=== PATIENT | female | born 1975 | race Caucasian/White ===

== ENCOUNTER → 2017-08-02 | Outpatient (CLI) | payer BC | LOC: FIMAGING 08:03 | PROVIDERS: ATTEND Internal Medicine | DX: N83.01 Follicular cyst of right ovary (principal) ==

== ENCOUNTER 2018-04-14 13:13 | Emergency (ER) | payer BC ==
--- NOTE | 2018-04-14 14:14 | EDPHY ---
H & P Smoking Status: Never smoked Time Seen by Provider: 04/14/18 14:08 HPI/ROS: CHIEF COMPLAINT: Left pinky injury HISTORY OF PRESENT ILLNESS: 43-year-old female arrives via private vehicle complaining of acute left pinky digit distal phalanx injury when it became crushed between 2 objects when she was moving. Positive soft tissue swelling. PHYSICAL EXAM (Prior to examination, patient consented to physical exam, hands were washed and my usual and customary physical exam procedures followed) 1) GENERAL: Well-developed, well-nourished, alert and oriented. Appears to be in no acute distress. 2) HEAD: Normocephalic 3) HEENT: sclera anicteric 4) LUNGS: Breathing comfortably. 5) SKIN: No subungual hematoma. Soft tissue swelling and ecchymosis to the distal phalanx palmar aspect of the 5th digit with associated tenderness. Soft compartments. FDP FDS function intact. Extensor function intact. No shortening no malrotation. Normal cascading of digit. No signs of infection. Negative kanavel sign. (Cordell Montemayor) Constitutional: Initial Vital Signs Temperature (C) 37 C 04/14/18 13:16 Heart Rate 66 04/14/18 13:16 Respiratory Rate 16 04/14/18 13:16 Blood Pressure 124/80 H 04/14/18 13:16 O2 Sat (%) 96 04/14/18 13:16 O2 Delivery Mode Room Air Allergies/Adverse Reactions: No Known Allergies Allergy (Unverified 04/14/18 13:16) Home Medications: Medication Instructions Recorded Wellbutrin 100mg (*) 04/14/18 MDM/Departure - [facility] Imaging: Discussed imaging studies w/ automatic oven operator Radiologist, I viewed and interpreted images myself - [facility] Imaging Results: Imaging Impressions Finger X-Ray 04/14/18 13:19 Impression: No evidence for acute osseous abnormality left fifth finger. Images reviewed myself (Cordell Montemayor) Procedures: Procedure: Splint Aluminum finger splint was applied by ER vehicle modification technician. After application of the splint I returned and re-examined the patient. The splint was adequately immobilizing the joint and distal to the splint the patient's circulation and sensation were intact. Patient shows no signs of compartment syndrome. Was given orthopedic precautions. (Cordell Montemayor) ED Course/Re-evaluation: No fracture, no signs of infection. She has been splinted. Recommend hand surgery follow-up. Usual and customary orthopedic precautions and instructions provided. I saw this patient independently based on established practice protocols. Care of patient under supervision of secondary supervising physician Dr Vences . (Cordell Montemayor) I did not see this patient while she was in the emergency department. However her care was discussed with the PA while the patient was in the department. I agree with treatment plan and management (Diego Vences) - Depart Disposition: Home, Routine, Self-Care Clinical Impression: Injury, crush, finger Qualifiers: Encounter type: initial encounter Qualified Code(s): S67.10XA - Crushing injury of unspecified finger(s), initial encounter Condition: Good Instructions: Crush Injury (ED) Additional Instructions: Return to the ER immediately if you experience discoloration, have worsening pain, numbness, tingling, or any other symptoms that concern you. If you received x-rays in the emergency department today, be advised, that ligamentous , tendon, muscular, and other non-bony injury cannot be fully ruled out. Try to keep your affected extremity elevated above the level of your chest, and keep cold packs on the affected area, for the next 48 hours. Referrals: Lucas Begum MD [Medical Doctor] - 5-7 days, call for appt.
[2018-04-14 14:54] VITALS: BP 115/85
== END 2018-04-14 14:54 | disposition home or self-care (01) ==
DX: S67.197A Crushing injury of left little finger, initial encounter (principal); W23.1XXA Caught, crushed, jammed, or pinched between stationary objects, initial encounter
CPT/HCPCS: L3925